=== PATIENT | female | born 1975 | race Two or more races ===

== ENCOUNTER 2018-06-09 09:00 | Outpatient (CLI) | payer OTHER ==
[~2018-06-09 09:00] MED LIST: AZITHROMYCIN500 MG PO; LEVAQUIN750 MG PO; MEDROL4 MG PO; OMEPRAZOLE40 MG PO; PROVENTIL HFA6.7 GM IH; TUSSI PRES-B L120 M1 PO; ZANTAC150 MG PO
== END 2018-06-09 09:10 | disposition home or self-care (01) ==
LOC: RX STUDY 09:00
DX: K44.9 Diaphragmatic hernia without obstruction or gangrene (principal)